=== PATIENT | female | born 2000 | race Caucasian/White ===

== ENCOUNTER 2023-04-26 01:50 | Emergency (ER) | payer BC ==
[~2023-04-26] VITALS: Ht 160 cm; Wt 97.7 kg
[2023-04-26 01:58] VITALS: TEMP 98
[2023-04-26 02:32] LABS: BASO # 0.1 K/mm3 (0.0-0.2); BASO % 0.5 % (0.0-2.0); EOS # 0.1 K/mm3 (0.0-0.7); EOS % 0.7 % (0.0-4.0); GRAN # 9.9 K/mm3 (1.4-6.5); GRAN % 73.6 % (42.2-75.2); HEMOGLOBIN 12.5 g/dl (12.5-16.0); LYMPH # 2.4 K/mm3 (1.2-3.4); LYMPH % 17.9 % (20.0-51.0); MEAN CELL VOLUME 90 fl (80.0-100.0); MEAN CORPUSCULAR HEMOGLOBIN 30 pg (27-31); MEAN CORPUSCULAR HGB CONC 34 g/dl (33.0-37.0); MEAN PLATELET VOLUME 9.9 fl (7.4-10.4); MONO # 0.9 K/mm3 (0.1-0.6); MONO % 6.8 % (1.7-9.3); PLATELET COUNT 323 K/mm3 (130-400); RED BLOOD COUNT 4.12 M/mm3 (4.10-5.30); REDCELL DISTRIBUTION WIDTH-CV 12.1 % (11.5-14.5)
[2023-04-26 02:45] LABS: ALANINE AMINOTRANSFERASE 17 U/L (0-55); ALBUMIN 3.7 gm/dL (3.5-5.0); ALKALINE PHOSPHATASE 54 U/L (40-150); ANION GAP 10 mmol/L (7-16); AST,SGOT 19 U/L (5-34); BILIRUBIN,TOTAL 0.5 mg/dL (0.2-1.2); BLOOD UREA NITROGEN 6 mg/dL (7-19); C-REACTIVE PROTEIN 0.58 mg/dL (0.00-0.50); CALCIUM 9.5 mg/dL (8.4-10.2); CARBON DIOXIDE 21 mmol/L (22-29); CHLORIDE 104 mmol/L (98-107); CREATININE, serum 0.72 mg/dL (0.57-1.11); GLUCOSE 96 mg/dL (70-99); LIPASE < 4 U/L (8-78); SODIUM 135 mmol/L (136-145); TOTAL PROTEIN 7.6 gm/dL (6.2-8.1)
[2023-04-26 03:00] LABS: HCG,QUANTITATIVE < 1 mIU/mL
[2023-04-26 03:04] LABS: COLLECTION METHOD CLEAN CATCH
[2023-04-26 03:15] LABS: MUCOUS Present (NOT PRESENT); PH 5.5 (5.0-8.5); URINE APPEARANCE Clear (CLEAR/HAZY); URINE BACTERIA Rare /hpf (NONE SEEN); URINE BLOOD TRACE-INTACT (NEGATIVE); URINE COLOR Amber (YELLOW); URINE GLUCOSE Negative (NEGATIVE); URINE KETONE TRACE (NEGATIVE); URINE NITRATE Negative (NEGATIVE); URINE PROTEIN(semi-quant) Negative (NEGATIVE); URINE RBC 0-2 /hpf (0-2); URINE UROBILINOGEN 0.2 E.U/dL (0.2-1.0)
[2023-04-26] MEDS ORDERED: MIRALAX510G PO (03:22)
[2023-04-26 03:41] VITALS: BP 122/56; PULSE 90
[2023-04-26] MEDS ORDERED: REGLAN 10MG10 MG/TAB PO (03:59)
== END 2023-04-26 03:41 | disposition home or self-care (01) ==
LOC: COL.ER 01:50
PROVIDERS: Emergency Medicine
DX: O03.9 Complete or unspecified spontaneous abortion without complication (principal); K59.00 Constipation, unspecified; R11.2 Nausea with vomiting, unspecified
CPT/HCPCS: J2405; J7030

== ENCOUNTER → 2023-04-30 | Outpatient (CLI) | payer BC ==
[~2023-04-30] MED LIST: MIRALAX510G PO; REGLAN 10MG10 MG/TAB PO
== END ==
LOC: COL.LAB 16:29
DX: Z34.90 Encounter for supervision of normal pregnancy, unspecified, unspecified trimester (principal)

== ENCOUNTER 2023-12-11 13:58 | Emergency (ER) | payer MEDICAID ==
[~2023-12-11] VITALS: Ht 157.5 cm; Wt 104.5 kg
[2023-12-11 14:06] VITALS: TEMP 98.7
[2023-12-11 14:34] LABS: BASO # 0.1 K/mm3 (0.0-0.2); BASO % 0.8 % (0.0-2.0); EOS # 0.2 K/mm3 (0.0-0.7); GRAN # 5.5 K/mm3 (1.4-6.5); GRAN % 70.5 % (42.2-75.2); LYMPH # 1.4 K/mm3 (1.2-3.4); LYMPH % 17.9 % (20.0-51.0); MEAN CELL VOLUME 95 fl (80.0-100.0); MEAN CORPUSCULAR HGB CONC 32 g/dl (33.0-37.0); MEAN PLATELET VOLUME 9.2 fl (7.4-10.4); MONO # 0.6 K/mm3 (0.1-0.6); MONO % 7.2 % (1.7-9.3); PLATELET COUNT 388 K/mm3 (130-400); RED BLOOD COUNT 2.37 M/mm3 (4.10-5.30); REDCELL DISTRIBUTION WIDTH-CV 12.8 % (11.5-14.5)
[2023-12-11 14:37] LABS: HEMATOCRIT 22.5 % (37.0-47.0); HEMOGLOBIN 7.2 g/dl (12.5-16.0); MEAN CORPUSCULAR HEMOGLOBIN 30 pg (27-31)
[2023-12-11 14:50] LABS: ALBUMIN 2.8 g/dL (3.5-5.0); BILIRUBIN,TOTAL 0.5 mg/dL (0.2-1.2); CALCIUM 8.4 mg/dL (8.4-10.2); CREATININE, serum 0.72 mg/dL (0.57-1.11); MAGNESIUM 1.9 mg/dL (1.6-2.6); POTASSIUM 4.2 mEq/L (3.5-4.5); TOTAL PROTEIN 6.2 g/dl (6.2-8.1)
[2023-12-11 14:57] LABS: TROPONIN-I 0.046 ng/mL (0.00-0.033)
[2023-12-11 15:13] LABS: COLLECTION METHOD CLEAN CATCH
[2023-12-11 15:24] LABS: URINE APPEARANCE CLEAR (CLEAR/HAZY); URINE BLOOD 3+ (NEGATIVE); URINE COLOR YELLOW (YELLOW); URINE GLUCOSE NEGATIVE (NEGATIVE); URINE KETONE NEGATIVE (NEGATIVE); URINE NITRATE NEGATIVE (NEGATIVE); URINE PROTEIN(semi-quant) NEGATIVE (NEGATIVE); URINE UROBILINOGEN 0.2 E.U/dL (0.2-1.0)
[2023-12-11] MEDS ORDERED: Iohexol 300 - 100 ML VIAL IV ONE (16:26)
[2023-12-11] MEDS ORDERED: NS 100 ML IV SCH (16:26)
[2023-12-11] MEDS ORDERED: ELIQUIS 5MG PO (17:55)
[2023-12-11] MEDS ORDERED: MACROBID 1100 MG/CAP PO (17:55)
[2023-12-11] MEDS ORDERED: LASIX 40MG TABL40 MG PO (17:55)
[2023-12-11] MEDS ORDERED: NORMODYNE100 MG PO (17:55)
[2023-12-11 19:03] VITALS: BP 146/77; PULSE 79
== END 2023-12-11 19:03 | disposition home or self-care (01) ==
LOC: COL.ER 13:58
PROVIDERS: Emergency Medicine
DX: O90.3 Peripartum cardiomyopathy (principal); O86.20 Urinary tract infection following delivery, unspecified; N39.0 Urinary tract infection, site not specified
CPT/HCPCS: Q9967

== ENCOUNTER 2023-12-24 19:32 | Emergency (ER) | payer MEDICAID ==
[~2023-12-24] VITALS: Ht 157.5 cm; Wt 102.3 kg
[~2023-12-24 19:32] MED LIST changes: +ELIQUIS 5MG PO; +LASIX 40MG TABL40 MG PO; +MACROBID 1100 MG/CAP PO; +NORMODYNE100 MG PO
[2023-12-24 20:08] LABS: COLLECTION METHOD CLEAN CATCH
[2023-12-24] MEDS ORDERED: NS 1,000 ML IV ONE (20:15)
[2023-12-24] MEDS ORDERED: Ketorolac 30 MG/ML VIAL IV ONE (20:15)
[2023-12-24] MEDS ORDERED: Acetaminophen 500 MG TAB PO ONE (20:15)
[2023-12-24 20:19] LABS: PH 6.5 (5.0-8.5); URINE APPEARANCE CLEAR (CLEAR/HAZY); URINE BLOOD 2+ (NEGATIVE); URINE COLOR YELLOW (YELLOW); URINE GLUCOSE NEGATIVE (NEGATIVE); URINE KETONE TRACE (NEGATIVE); URINE NITRATE NEGATIVE (NEGATIVE); URINE PROTEIN(semi-quant) TRACE (NEGATIVE)
[2023-12-24 20:40] LABS: BASO # 0.1 K/mm3 (0.0-0.2); BASO % 0.8 % (0.0-2.0); EOS # 0.3 K/mm3 (0.0-0.7); EOS % 3.1 % (0.0-4.0); GRAN # 7.4 K/mm3 (1.4-6.5); GRAN % 70.7 % (42.2-75.2); HEMOGLOBIN 10.2 g/dl (12.5-16.0); LYMPH % 18.9 % (20.0-51.0); MEAN CELL VOLUME 91 fl (80.0-100.0); MEAN CORPUSCULAR HEMOGLOBIN 30 pg (27-31); MEAN CORPUSCULAR HGB CONC 33 g/dl (33.0-37.0); MEAN PLATELET VOLUME 10.2 fl (7.4-10.4); MONO # 0.6 K/mm3 (0.1-0.6); MONO % 6.1 % (1.7-9.3); PLATELET COUNT 316 K/mm3 (130-400); RED BLOOD COUNT 3.44 M/mm3 (4.10-5.30); REDCELL DISTRIBUTION WIDTH-CV 12.4 % (11.5-14.5)
[2023-12-24 20:42] LABS: HEMATOCRIT 31.2 % (37.0-47.0)
[2023-12-24 20:50] LABS: ALBUMIN 3.6 g/dL (3.5-5.0); BILIRUBIN,TOTAL 0.7 mg/dL (0.2-1.2); CALCIUM 8.8 mg/dL (8.4-10.2); CREATININE, serum 0.84 mg/dL (0.57-1.11); TOTAL PROTEIN 7.4 g/dl (6.2-8.1)
[2023-12-24] MEDS ORDERED: NS 50 ML IV SCH (20:56)
[2023-12-24] MEDS ORDERED: Iohexol 300 - 100 ML VIAL IV ONE (20:56)
[2023-12-24] MEDS ORDERED: NS 64 ML IV SCH (21:08)
[2023-12-24] MEDS ORDERED: Iohexol 350 - 100 ML VIAL IV ONE (21:08)
[2023-12-24 21:37] VITALS: TEMP 98.4
[2023-12-24] MEDS ORDERED: CIPRO 500MG TA500 MG PO (22:26)
[2023-12-24 23:45] VITALS: BP 111/62; PULSE 101
== END 2023-12-24 23:49 | disposition home or self-care (01) ==
LOC: COL.ER 19:32
PROVIDERS: Nurse Practitioner Primary Care
DX: O86.20 Urinary tract infection following delivery, unspecified (principal); N39.0 Urinary tract infection, site not specified; Z88.1 Allergy status to other antibiotic agents; Z88.2 Allergy status to sulfonamides
CPT/HCPCS: J0744; J1885; J7030; Q9967